=== PATIENT | male | born 1950 | race Caucasian/White ===

== ENCOUNTER 2017-01-31 16:09 | Emergency (ER) | payer MEDICARE, OTHER ==
[2017-01-31 16:14] VITALS: TEMP 98.4; BMI 25.8
--- NOTE | 2017-01-31 17:15 | PDOC ---
History of Present Illness - General History Source: Patient Exam Limitations: No Limitations <Elaine Sutton - Last Filed: 01/31/17 18:43> - General History Source: Patient Exam Limitations: No Limitations - History of Present Illness Initial Comments: 01/31/17 17:51 The patient is a 66 year old male with a significant past medical history of diabetes, hypertension, and hypercholesterolemia, presenting to the Emergency Department with a headache and high blood pressure as of this morning. The patient reports that this morning he had a headache which he believed may be due to his blood pressure. The patient reports taking his blood pressure at noon at home which was measured to be 217/96. He describes the headache as frontal, worse at his left side, radiating around his left eye. He admits to taking one ibuprofen this morning with some relief. He admits that he is compliant with his blood pressure medication. He admits that he saw his PCP last Thursday and his blood pressure was fine. The patient denies blurry vision, or double vision. Patient denies dizziness, or vertigo. Patient denies chest pain, palpitations, and shortness of breath. He denies nausea, vomiting, and diarrhea. Patient denies neck pain, or back pain. Patient denies numbness or tingling to extremities. Patient denies history of smoking. PCP: Dr. Donald Lakhani Past Medical Hx: history of colon cancer <Norma Flannery - Last Filed: 01/31/17 18:54> <Amy Lebron - Last Filed: 02/01/17 22:48> - General Chief Complaint: Headache Stated Complaint: BP PROBLEM Time Seen by Provider: 01/31/17 16:34 Past History - Past Medical History Cancer: Yes (colon) Cardiac Disorders: Yes (H/O COLON CA.) Diabetes: Yes HTN: Yes Hypercholesterolemia: Yes - Psycho/Social/Smoking Cessation Hx Anxiety: No Suicidal Ideation: No Smoking Status: No Smoking History: Never smoked Number of Cigarettes Smoked Daily: 0 Hx Alcohol Use: No Drug/Substance Use Hx: No Substance Use Type: None <Elaine Sutton - Last Filed: 01/31/17 18:43> <Norma Flannery - Last Filed: 01/31/17 18:54> <Amy Lebron - Last Filed: 02/01/17 22:48> - Past Medical History Allergies/Adverse Reactions: Allergies Allergy/AdvReac Type Severity Reaction Status Date / Time No Known Allergies Allergy Verified 01/31/17 16:10 Home Medications: Ambulatory Orders Insulin NPL/Insulin Lispro [Humalog Mix 75-25 Vial] 25 unit SQ BID #7 ml Metoprolol Succinate [Toprol XL -] 50 mg PO DAILY 30 Days 01/13/15 Hydrochlorothiazide [Hctz -] 50 mg PO DAILY #30 tablet 01/31/17 Review of Systems - Review of Systems Able to Perform ROS?: Yes Comments:: 01/31/17 17:51 GENERAL/CONSTITUTIONAL: No: fever, chills, weakness, loss of appetite. Present: + high blood pressure HEAD, EYES, EARS, NOSE AND THROAT: No: change in vision, ear pain, discharge, sore throat, throat swelling. CARDIOVASCULAR: No: chest pain, lightheadedness, palpitations, syncope RESPIRATORY: No: cough, shortness of breath, wheezing, hemoptysis, stridor. GASTROINTESTINAL: No: nausea, vomiting, abdominal cramping, diarrhea, rectal bleeding, constipation. GENITOURINARY: No: dysuria, hematuria, frequency, urgency, flank pain. MUSCULOSKELETAL: No: back pain, neck pain, joint pain, muscle swelling or pain SKIN: No: lesions, pallor, rash or easy bruising. NEUROLOGIC: No: vertigo, paresthesias, weakness Present: + headache worse at left side ENDOCRINE: No: unexplained weight gain or loss HEMATOLOGIC/LYMPHATIC: No: anemia, easy bleeding, swelling nodes <Norma Flannery - Last Filed: 01/31/17 18:54> *Physical Exam - Vital Signs Last Vital Signs Temp Pulse Resp BP Pulse Ox 98.4 F 80 18 161/85 99 01/31/17 16:10 01/31/17 16:10 01/31/17 16:10 01/31/17 16:10 01/31/17 16:10 <Elaine Sutton - Last Filed: 01/31/17 18:43> - Vital Signs Last Vital Signs Temp Pulse Resp BP Pulse Ox 98.4 F 80 18 161/85 99 01/31/17 16:10 01/31/17 16:10 01/31/17 16:10 01/31/17 16:10 01/31/17 16:10 - Physical Exam Comments: 01/31/17 18:42 GENERAL: The patient is in no acute distress. HEAD: Normal with no signs of trauma. EYES: PERRLA, EOMI, sclera anicteric, conjunctiva clear. ENT: Ears normal, nares patent, oropharynx clear without exudates. Moist mucous membranes. NECK: Normal range of motion, supple without lymphadenopathy, JVD, or masses. LUNGS: Breath sounds equal, clear to auscultation bilaterally. No wheezes, and no crackles. HEART:Regular rate and rhythm, normal S1 and S2 without murmur, rub or gallop. ABDOMEN: Soft, nontender, normoactive bowel sounds. No guarding, no rebound. EXTREMITIES: Normal range of motion, no edema. No clubbing or cyanosis. No erythema, or tenderness. NEUROLOGICAL: Cranial nerves II through XII grossly intact. Normal speech. No focal neurological deficits. MUSCULOSKELETAL: Back nontender to palpation, no CVA tenderness SKIN: Warm, Dry, normal turgor, no rashes or lesions noted. <Norma Flannery - Last Filed: 01/31/17 18:54> - Vital Signs Last Vital Signs Temp Pulse Resp BP Pulse Ox 98.4 F 80 18 161/85 99 01/31/17 16:10 01/31/17 16:10 01/31/17 16:10 01/31/17 16:10 01/31/17 16:10 <Amy Lebron - Last Filed: 02/01/17 22:48> Heart Score/ECG Review #1 ECG reviewed & interpreted by me at: 18:22 01/31/17 18:22 Twelve-lead EKG was performed and reviewed by me. There is normal sinus rhythm with a normal rate of 72 bpm. Right axis deviation. The intervals are abnormal - pr:200ms, QRS:166ms, QTc:475ms. There are no ST elevations or depressions similar to prior EKG <Elaine Sutton - Last Filed: 01/31/17 18:43> ED Treatment Course - LABORATORY CBC & Chemistry Diagram: 01/31/17 17:30 01/31/17 17:30 <Elaine Sutton - Last Filed: 01/31/17 18:43> - LABORATORY CBC & Chemistry Diagram: 01/31/17 17:30 01/31/17 17:30 - RADIOLOGY Radiograph Interpretation: 01/31/17 18:[address] to be read by Imaging silk conditioner <Norma Flannery - Last Filed: 01/31/17 18:54> - LABORATORY CBC & Chemistry Diagram: 01/31/17 17:30 01/31/17 17:30 - ADDITIONAL ORDERS Additional order review: Laboratory Results 01/31/17 17:30 Sodium 138 Potassium 4.8 D Chloride 98 Carbon Dioxide 32 Anion Gap 8 BUN 16 D Creatinine 1.3 D Creat Clearance w eGFR 55.40 Random Glucose 295 H D Calcium 8.9 Total Bilirubin 0.3 D AST 18 ALT 26 Alkaline Phosphatase 168 H Creatine Kinase 100 Troponin I < 0.02 Total Protein 7.2 Albumin 3.6 01/31/17 17:30 RBC 5.56 D MCV 85.1 MCHC 32.7 RDW 14.5 D MPV 8.5 Neutrophils % 73.0 Lymphocytes % 19.1 D Monocytes % 6.3 Eosinophils % 1.1 Basophils % 0.5 - Medications Given in the ED: ED Medications Discontinued Medications Generic Name Dose Route Start Last Admin Trade Name Freq PRN Reason Stop Dose Admin Insulin Human Regular 4 units 01/31/17 19:43 01/31/17 19:49 Novolin R Vial *For Ivpush Or Iv Drip Only* SQ 01/31/17 19:44 4 unit ONCE ONE Administration Metoclopramide HCl 10 mg 01/31/17 17:16 01/31/17 17:53 Reglan Injection - IVPB 01/31/17 17:17 10 mg ONCE ONE Administration Valsartan 80 mg 01/31/17 19:35 01/31/17 19:43 Diovan - PO 01/31/17 19:36 80 mg ONCE ONE Administration <Amy Lebron - Last Filed: 02/01/17 22:48> Medical Decision Making - Medical Decision Making 01/31/17 17:14 A portion of this note was documented by scribe services under my direction. I have reviewed the details of the note, within reason, and agree with the documentation with the following case summary and management plan written by me. Nursing documentation reviewed and incorporated into medical decision making This is a 66 yo M h/o DM, HTN, colon cancer in the past Pt presents to the ER with a complaint of headache He states while his head was hurting earlier today, he checked his blood pressure and it was elevated Pt took all of his medications this morning No head trauma Denies dizziness Pt states his headache is frontal, also behind the right eye and on the right side of the face No focal weakness or numbness On examination RRR Lungs clear neurologically nml Will do labs Will do Head CT Will give Reglan Will hold NSAIDS until head CT performed and normal 01/31/17 18:23 Laboratory Tests 01/31/17 17:30 WBC 8.9 Hgb 15.5 D Hct 47.3 D Plt Count 228 Neutrophils % 73.0 Lymphocytes % 19.1 D 01/31/17 18:43 Laboratory Tests 01/31/17 17:30 Sodium 138 Potassium 4.8 D Chloride 98 Carbon Dioxide 32 BUN 16 D Creatinine 1.3 D Random Glucose 295 H D Alkaline Phosphatase 168 H Troponin I < 0.02 <Elaine Sutton - Last Filed: 01/31/17 18:43> - Medical Decision Making 01/31/17 20:26 Patient Name: Nick Leos THIS IS A PRELIMINARY REPORT FROM [facility]. EXAM: HEAD CT WITHOUT CONTRAST DATE OF SERVICE: 2017-01-31 18:14:44.0 IMAGES: 79 INDICATION: Left-sided headache and hypertension. COMPARISON: None FINDINGS: Mild underlying bilateral cerebral hemisphere white matter low- density chronic microvascular ischemic disease. There is no CT evidence of acute cortical territorial infarction, bleed, mass lesion, mass effect, hydrocephalus or abnormal extraaxial collection. No acute sinusitis or mastoiditis is identified. No acute skull fracture or calvarial lesion is noted. THIS DOCUMENT HAS BEEN ELECTRONICALLY SIGNED 02/01/17 22:47 I received patient on signout. He has poorly controlled BP. Head CT normal. He is feeling better. He will go home with meds. I will add on HCTZ to his regimen. Follow with PMD. <Amy Lebron - Last Filed: 02/01/17 22:48> *DC/Admit/Observation/Transfer <Elaine Sutton - Last Filed: 01/31/17 18:43> - Attestations Scribe Attestion: 01/31/17 17:52 Documentation prepared by Norma Flannery, acting as medical health researcher for Elaine Sutton MD/. <Norma Flannery - Last Filed: 01/31/17 18:54> - Discharge Dispostion Admit: No <Amy Lebron - Last Filed: 02/01/17 22:48> Diagnosis at time of Disposition: Hypertension - Discharge Dispostion Disposition: HOME Condition at time of disposition: Stable - Prescriptions Prescriptions: Hydrochlorothiazide [Hctz -] 50 mg PO DAILY #30 tablet - Referrals Referrals: Donald Lakhani MD [Primary Care Provider] - - Patient Instructions Printed Discharge Instructions: DI for High Blood Pressure, How to Monitor Your Blood Pressure at Home
[2017-01-31] MEDS ORDERED: METOCLOPRAMIDE HCL INJECTION 10 MG/2 ML VIAL IVPB ONE (17:16)
[2017-01-31 17:37] LABS: BASOPHIL 0.5 % (0-2.0); EOSINOPHIL 1.1 % (0-4.5); MCH 27.8 pg (25.7-33.7); MCHC 32.7 g/dl (32.0-35.9); MEAN CELL VOLUME 85.1 fl (80-96); MEAN PLT VOLUME 8.5 fl (7.5-11.1); PLATELET COUNT 228 K/MM3 (134-434); RDW 14.5 % (11.9-15.9); WHITE BLOOD COUNT 8.9 K/mm3 (4.0-10.0)
[2017-01-31] MEDS ORDERED: METOCLOPRAMIDE HCL INJECTION 10 MG/2 ML VIAL ONE ×2 (17:40→17:44)
[2017-01-31 18:26] LABS: ALBUMIN 3.6 g/dl (3.4-5.0); ANION GAP 8 (8-16); BILIRUBIN,TOTAL 0.3 mg/dL (0.2-1.0); CALCIUM 8.9 mg/dL (8.5-10.1); CO2 32 mmol/L (21-32); COCKROFT - GAULT 71.23; CREATININE 1.3 mg/dL (0.7-1.3); GLUCOSE,RANDOM 295 mg/dL (74-106); SGPT/ALT 26 U/L (12-78); TOT PROT 7.2 g/dl (6.4-8.2)
[2017-01-31 18:29] LABS: ALK PHOS 168 U/L (45-117); TROPONIN I < 0.02 ng/ml (0.00-0.05)
[2017-01-31 18:41] LABS: SGOT/AST 18 U/L (15-37)
[2017-01-31] MEDS ORDERED: VALSARTAN 80 MG TABLET (UD) PO ONE (19:35)
[2017-01-31] MEDS ORDERED: VALSARTAN 80 MG TABLET (UD) ONE (19:41)
[2017-01-31] MEDS ORDERED: INSULIN REGULAR HUMAN 100 UNITS/ML *VIAL SQ ONE (19:43)
[2017-01-31] MEDS ORDERED: INSULIN REGULAR HUMAN 100 UNITS/ML *VIAL ONE (19:46)
[2017-01-31 20:47] VITALS: BP 140/71; PULSE 77
--- NOTE | 2017-02-02 10:45 | EKG ---
Test Reason : Blood Pressure : / mmHG Vent. Rate : 072 BPM Atrial Rate : 072 BPM P-R Int : 200 ms QRS Dur : 166 ms QT Int : 434 ms P-R-T Axes : 064 242 068 degrees QTc Int : 475 ms NORMAL SINUS RHYTHM POSSIBLE LEFT ATRIAL ENLARGEMENT RIGHT BUNDLE BRANCH BLOCK ABNORMAL ECG WHEN COMPARED WITH ECG OF 28-OCT-2015 22:02, VENT. RATE HAS DECREASED Confirmed by VERONICA RODRÍGUEZ, JOY ([id number]) on 02/02/2017 10:44:29 AM Referred By: Confirmed By:JOY MARTIN MD
== END 2017-01-31 20:50 | disposition home or self-care (01) ==
LOC: SUPCPDRO 16:09 → JER 16:09
PROC: 3E033GC Introduction of Other Therapeutic Substance into Peripheral Vein, Percutaneous Approach (ICD-10-PCS; principal; 2017-01-31)
PROC: 3E013VG Introduction of Insulin into Subcutaneous Tissue, Percutaneous Approach (ICD-10-PCS; 2017-01-31)
DX: I10 Essential (primary) hypertension (principal); E11.9 Type 2 diabetes mellitus without complications; Z79.4 Long term (current) use of insulin; E78.00 Pure hypercholesterolemia, unspecified; Z85.038 Personal history of other malignant neoplasm of large intestine
CPT/HCPCS: 36415; 70450-TC; 80053; 82550; 84484; 85025; 93005; 93010; 96372; 96374; 99282-25

== ENCOUNTER 2017-09-14 13:31 | Emergency (ER) | payer MEDICARE ==
[2017-09-14] MEDS ORDERED: SODIUM CHLORIDE 0.9% 1000 ML INFUS.BAG IV PRN (13:39)
[2017-09-14] MEDS: METOCLOPRAMIDE HCL INJECTION 10 MG/2 ML VIAL IVPUSH ONE ×2 (14:05→14:41)
--- NOTE | 2017-09-14 14:10 | PDOC ---
History of Present Illness - General Stated Complaint: HTN,VOMITING Time Seen by Provider: 09/14/17 13:39 History Source: Patient, EMS, Family Exam Limitations: No Limitations - History of Present Illness Initial Comments: This is a 67 YOM with h/o HTN, IDDM, prior colon cancer s/p resection and chemotherapy 2 years ago, who presents BIBA for headache for the past 3 days, nausea and vomiting this morning, and inability to walk d/t weakness and lightheadedness just [employer]PORATE [employer]OR which prompted the family to call 911. The notes that the patient was attempting to get up from the couch and had to sit down again because he was unable to walk and almost fell. The family states that he has not missed any medications including normal blood pressure medications and diabetes medications. The patient was seen in the ED earlier this year for a similar episode of headache in the setting of missing his blood pressure medications. Past History - Past Medical History Allergies/Adverse Reactions: Allergies Allergy/AdvReac Type Severity Reaction Status Date / Time No Known Allergies Allergy Verified 01/31/17 16:10 Home Medications: Ambulatory Orders Metoprolol Succinate [Toprol XL -] 50 mg PO DAILY 30 Days tab.sr.24h 01/13/15 Insulin Degludec [Tresiba Flextouch U-100] 20 units SQ AM 09/14/17 Insulin Degludec [Tresiba Flextouch U-100] 30 units SQ HS 09/14/17 Metoclopramide HCl [Reglan] 5 mg PO TID PRN #14 tablet 09/14/17 Cancer: Yes (colon) Cardiac Disorders: Yes (H/O COLON CA.) Diabetes: Yes HTN: Yes Hypercholesterolemia: Yes - Suicide/Smoking/Psychosocial Hx Smoking Status: No Smoking History: Never smoked Number of Cigarettes Smoked Daily: 0 Hx Alcohol Use: No Drug/Substance Use Hx: No Substance Use Type: None Review of Systems - Review of Systems Able to Perform ROS?: Yes Constitutional: Yes: Fever (subjective), Weakness. No: Chills, Unexplained wgt Loss HEENTM: No: Nose Congestion, Throat Pain Respiratory: No: Cough, Shortness of Breath Cardiac (ROS): Yes: Lightheadedness. No: Chest Pain, Palpitations, Syncope ABD/GI: Yes: Nausea, Vomiting. No: Constipated, Diarrhea : No: Burning, Dysuria Musculoskeletal: No: Back Pain, Neck Pain Integumentary: No: Bruising, Rash Neurological: Yes: Headache. No: Numbness, Tingling, Weakness, Dizziness Endocrine: No: Unexplained Weight Gain, Unexplained Weight Loss *Physical Exam - Physical Exam General Appearance: Yes: Nourished, Appropriately Dressed, Moderate Distress, Other (actively vomiting food and yellow-green fluid, able to answer questions with one-word answers, Divehi-speaking only) HEENT: positive: EOMI, Normal Voice, Hearing Grossly Normal. negative: Scleral Icterus (R), Scleral Icterus (L), Nasal Congestion Neck: positive: Trachea midline, Supple. negative: Tender, Rigid Respiratory/Chest: positive: Lungs Clear, Normal Breath Sounds. negative: Respiratory Distress, Crackles, Rhonchi, Stridor, Wheezing Cardiovascular: positive: Regular Rhythm, Regular Rate. negative: Murmur Gastrointestinal/Abdominal: positive: Normal Bowel Sounds, Flat, Soft. negative : Tender, Organomegaly, Pulsatile Mass, Guarding Musculoskeletal: positive: Normal Inspection. negative: Decreased Range of Motion, Vertebral Tenderness Extremity: positive: Normal Capillary Refill, Normal Inspection, Normal Range of Motion. negative: Tender, Cyanosis Integumentary: positive: Normal Color, Dry, Warm. negative: Erythema, Rash, Bruising Neurologic: positive: junior qa analyst II-XII NML intact, Fully Oriented, Alert, Normal Mood/ Affect, Normal Response, Motor Strength 5/5. negative: EOM Palsy, Facial Droop , Numbness, Sensory Deficit, Finger to Nose, Confused, Disoriented ED Treatment Course - LABORATORY CBC & Chemistry Diagram: 09/14/17 14:00 09/14/17 14:00 - RADIOLOGY Radiology Studies Ordered: Category Date Time Status ABDOMEN FLAT & UPRIGHT [RAD] Stat Radiology 09/14/17 13:59 Ordered CHEST X-RAY PORTABLE* [RAD] Stat Radiology 09/14/17 13:39 Ordered Medical Decision Making - Medical Decision Making 67M with h/o IDDM and HTN p/w frontal BRONSON x3d now with n/v x3 episodes today, lightheadedness keeping him from walking. On exam he is initially actively vomiting, slightly diaphoretic, but no abdominal ttp and neuro exam wnl, VS wnl. DDX IBNLT migraine, CVA/TIA, influenza, DKA/HHS, pancreatitis, cholecystitis/ choledocholithiasis, etc. Ordered is modified sepsis order set with CBCD, CMP, lipase, cardiac panel, lactate, CXR, abdominal XR. 09/14/17 14:50 Patient's blood pressure is checked manually to be 175/80 on the left and 180/ 78 on the right. WBC results with minimal elevation. 09/14/17 15:58 *DC/Admit/Observation/Transfer Diagnosis at time of Disposition: Headache Qualifiers: Headache type: unspecified Headache chronicity pattern: acute headache Intractability: not intractable Qualified Code(s): R51 - Headache Nausea & vomiting Qualifiers: Vomiting type: unspecified Vomiting Intractability: non-intractable Qualified Code(s): R11.2 - Nausea with vomiting, unspecified - Discharge Dispostion Disposition: HOME Condition at time of disposition: Stable Admit: No - Prescriptions Prescriptions: Metoclopramide HCl [Reglan] 5 mg PO TID PRN #14 tablet PRN Reason: Nausea And/Or Vomiting - Referrals Referrals: Donald Lakhani MD [Primary Care Provider] - - Patient Instructions Printed Discharge Instructions: DI for Viral Syndrome Additional Instructions: You were seen for headache, nausea, and vomiting. We gave you Reglan, Zofran, Tylenol and fluids with improvement in your symptoms. You were able to walk unassisted, eat, and drink. We checked your blood pressure and it was not dangerously elevated as soon as your headache and vomiting had improved. We checked lab work on your blood and urine and there were no concerning abnormalities. Please take Tylenol for headache as directed on the bottle. Please also take Reglan as needed for nausea and headache. We are sending an electronic prescription to your pharmacy for this. Please follow up with your primary doctor in 2 days, or return to the ER for any new or worsening symptoms like headache you cannot control with pain medications, fever, vomiting you cannot control with Reglan, or any neurological symptoms like loss of consciousness, numbness, tingling, weakness, difficulty walking, or other symptoms. Print Language: UKRAINIAN - Post Discharge Activity
[2017-09-14 14:11] LABS: BASO # 0.1 # (0.1-1); BASO % 0.5 % (0-2.0); EOS # 0.1 # (0-4.5); EOS % 0.6 % (0-4.5); LYMPH # 1.8 (8-40); MCH 27.8 pg (25.7-33.7); MCHC 32.7 g/dl (32.0-35.9); MONO # 0.6 # (3.8-10.2); NEUT # 7.7 # (42.8-82.8); NEUT % 74.9 % (42.8-82.8); PLATELET COUNT 181 K/MM3 (134-434); WHITE BLOOD COUNT 10.2 K/mm3 (4.0-10.0)
[2017-09-14 14:12] LABS: URINE APPEARANCE CLEAR; URINE BILIRUBIN NEGATIVE (NEGATIVE); URINE BLOOD NEGATIVE (NEGATIVE); URINE COLOR STRAW; URINE GLUCOSE (UA) 3+ (NEGATIVE); URINE KETONE NEGATIVE (NEGATIVE); URINE LEUK ESTERASE NEGATIVE (NEGATIVE); URINE NITRITE NEGATIVE (NEGATIVE); URINE PROTEIN NEGATIVE (NEGATIVE); URINE UROBILINOGEN NEGATIVE mg/dL (0.2-1.0)
[2017-09-14] MEDS ORDERED: ONDANSETRON 4 MG/2 ML VIAL ONE (14:30)
[2017-09-14 14:31] LABS: ALBUMIN 3.3 g/dl (3.4-5.0); ANION GAP 7 (8-16); BILIRUBIN,TOTAL 0.4 mg/dL (0.2-1.0); CALCIUM 9.2 mg/dL (8.5-10.1); CO2 31 mmol/L (21-32); CREATININE 1.2 mg/dL (0.7-1.3); GLUCOSE,RANDOM 196 mg/dL (74-106); SGOT/AST 18 U/L (15-37); SGPT/ALT 38 U/L (12-78); TOT PROT 6.8 g/dl (6.4-8.2)
[2017-09-14] MEDS ORDERED: ONDANSETRON 4 MG/2 ML VIAL IVPUSH ONE (14:32)
[2017-09-14 14:34] LABS: ALK PHOS 151 U/L (45-117); CPK 66 IU/L (39-308); TROPONIN I < 0.02 ng/ml (0.00-0.05)
[2017-09-14] MEDS ORDERED: METOCLOPRAMIDE HCL INJECTION 10 MG/2 ML VIAL ONE (14:36)
[2017-09-14 14:45] VITALS: BMI 22.4
[2017-09-14] MEDS ORDERED: ACETAMINOPHEN 1000 MG/100 ML VIAL (NON FORMULARY) IVPB ONE (15:54)
[2017-09-14] MEDS ORDERED: ACETAMINOPHEN INJECTION 100 ML IVPB ONE (16:18)
[2017-09-14 18:28] VITALS: BP 160/73; PULSE 71; TEMP 99
[2017-09-14 18:54] LABS: URINE LEUK ESTERASE Negative (NEGATIVE)
--- NOTE | 2017-09-15 13:11 | EKG ---
Test Reason : Blood Pressure : / mmHG Vent. Rate : 074 BPM Atrial Rate : 074 BPM P-R Int : 202 ms QRS Dur : 150 ms QT Int : 426 ms P-R-T Axes : 059 227 052 degrees QTc Int : 472 ms NORMAL SINUS RHYTHM POSSIBLE LEFT ATRIAL ENLARGEMENT RIGHT BUNDLE BRANCH BLOCK SEPTAL INFARCT , AGE UNDETERMINED ABNORMAL ECG WHEN COMPARED WITH ECG OF 31-JAN-2017 17:37, SEPTAL INFARCT IS NOW PRESENT Confirmed by MD Lalo, Juan A ([id number]) on 09/15/2017 1:11:14 PM Referred By: Confirmed By:Juan A May MD
== END 2017-09-14 18:00 | disposition home or self-care (01) ==
LOC: JER 13:31
PROC: 3E033NZ Introduction of Analgesics, Hypnotics, Sedatives into Peripheral Vein, Percutaneous Approach (ICD-10-PCS; principal; 2017-09-14)
PROC: 3E033GC Introduction of Other Therapeutic Substance into Peripheral Vein, Percutaneous Approach (ICD-10-PCS; 2017-09-14)
DX: R51 Headache (principal); R11.2 Nausea with vomiting, unspecified; E11.9 Type 2 diabetes mellitus without complications; I10 Essential (primary) hypertension
CPT/HCPCS: 70450-TC; 71010-TC; 74020-TC; 80053; 81003; 82009; 82550; 83605; 83690; 84484; 85025; 87086; 87804; 93005; 93010; 96374; 96375; 99284-25

== ENCOUNTER 2021-03-26 12:01 | Inpatient (IN) | payer MEDICARE ==
[2021-03-26 12:06] VITALS: BMI 27.6
[2021-03-26 13:31] LABS: BASO % 0.6 % (0-2.0); EOS % 2.1 % (0-4.5); HEMATOCRIT 37.1 % (35.4-49); HEMOGLOBIN 12.1 GM/dL (11.7-16.9); LYMPH % 12.5 % (8-40); MCHC 32.6 g/dl (32.0-35.9); MEAN CELL VOLUME 85.9 fl (80-96); MEAN PLT VOLUME 9.1 fl (7.5-11.1); MONO % 7.8 % (3.8-10.2); PLATELET COUNT 314 10^3/uL (134-434); RBC 4.33 M/mm3 (4.00-5.60); WHITE BLOOD COUNT 9.4 K/mm3 (4.0-10.0)
[2021-03-26 13:50] LABS: CHLORIDE 109 mmol/L (98-107); SODIUM 141 mmol/L (136-145)
[2021-03-26 13:52] LABS: ALBUMIN 2.8 g/dl (3.4-5.0); ANION GAP 5 MMOL/L (8-16); BLOOD UREA NITROGEN 26.6 mg/dL (7-18); CALCIUM 9.1 mg/dL (8.5-10.1); CO2 27 mmol/L (21-32); GLUCOSE,RANDOM 81 mg/dL (74-106)
[2021-03-26 13:56] LABS: SGOT/AST 27 U/L (15-37); SGPT/ALT 19 U/L (13-61)
[2021-03-26 13:57] LABS: BILIRUBIN,TOTAL 0.3 mg/dL (0.2-1)
[2021-03-26 13:58] LABS: ALK PHOS 111 U/L (45-117); TOT PROT 6.6 g/dl (6.4-8.2)
[2021-03-26 14:37] LABS: CREATININE 1.1 mg/dL (0.55-1.3)
[2021-03-26] MEDS ORDERED: ASPIRIN 81 MG CHEWABLE TABLETS PO ONE (15:01)
[2021-03-26] MEDS ORDERED: ASPIRIN 81 MG CHEWABLE TABLETS ONE (15:29)
[2021-03-26] MEDS: INSULIN SLIDING SCALE (NOVOLOG) 1 VIAL SQ SCH (22:13)
[2021-03-27] MEDS: INSULIN SLIDING SCALE (NOVOLOG) 1 VIAL SQ SCH ×4 (06:00→21:49)
[2021-03-27 07:14] LABS: BASO % 0.7 % (0-2.0); EOS % 2.5 % (0-4.5); HEMOGLOBIN 12.1 GM/dL (11.7-16.9); LYMPH % 17.7 % (8-40); MCH 27.9 pg (25.7-33.7); MCHC 32.6 g/dl (32.0-35.9); MEAN CELL VOLUME 85.5 fl (80-96); MEAN PLT VOLUME 8.5 fl (7.5-11.1); MONO % 8.8 % (3.8-10.2); NEUT % 70.3 % (42.8-82.8); PLATELET COUNT 293 10^3/uL (134-434); RBC 4.33 M/mm3 (4.00-5.60); RDW 14.9 % (11.9-15.9); WHITE BLOOD COUNT 8.3 K/mm3 (4.0-10.0)
[2021-03-27 07:34] LABS: CHLORIDE 109 mmol/L (98-107); SODIUM 143 mmol/L (136-145)
[2021-03-27 07:43] LABS: CALCIUM 8.8 mg/dL (8.5-10.1)
[2021-03-27 07:44] LABS: ALBUMIN 2.7 g/dl (3.4-5.0); ANION GAP 6 MMOL/L (8-16); BLOOD UREA NITROGEN 24.4 mg/dL (7-18); CO2 28 mmol/L (21-32)
[2021-03-27 07:47] LABS: CREATININE 1.1 mg/dL (0.55-1.3); SGOT/AST 16 U/L (15-37); SGPT/ALT 16 U/L (13-61)
[2021-03-27 07:48] LABS: BILIRUBIN,TOTAL 0.3 mg/dL (0.2-1)
[2021-03-27 07:49] LABS: TOT PROT 6.3 g/dl (6.4-8.2)
[2021-03-27 07:50] LABS: ALK PHOS 108 U/L (45-117); GLUCOSE,RANDOM 44 mg/dL (74-106)
[2021-03-27] MEDS: FUROSEMIDE 40 MG/4 ML INJECTABLE VIAL IVPUSH SCH (10:07)
[2021-03-27] MEDS: ENOXAPARIN NA (PORCINE) 40 MG/0.4 ML DISP.SYRIN SQ SCH (10:07)
[2021-03-27] MEDS ORDERED: hydrALAZINE HCL 10 MG TABLET PO ONE (17:10)
[2021-03-27] MEDS ORDERED: amLODIPine BESYLATE 2.5 MG TABLET (FP) PO ONE (21:00)
[2021-03-28] MEDS: INSULIN SLIDING SCALE (NOVOLOG) 1 VIAL SQ SCH ×4 (06:26→21:24)
[2021-03-28 07:13] LABS: BASO % 0.7 % (0-2.0); EOS % 2.5 % (0-4.5); HEMATOCRIT 34.1 % (35.4-49); HEMOGLOBIN 11.5 GM/dL (11.7-16.9); LYMPH % 18.3 % (8-40); MCH 28.6 pg (25.7-33.7); MCHC 33.9 g/dl (32.0-35.9); MEAN CELL VOLUME 84.6 fl (80-96); MEAN PLT VOLUME 8.4 fl (7.5-11.1); MONO % 9.2 % (3.8-10.2); NEUT % 69.3 % (42.8-82.8); PLATELET COUNT 285 10^3/uL (134-434); RBC 4.03 M/mm3 (4.00-5.60); RDW 15.3 % (11.9-15.9); WHITE BLOOD COUNT 8.1 K/mm3 (4.0-10.0)
[2021-03-28 07:42] LABS: CALCIUM 8.7 mg/dL (8.5-10.1)
[2021-03-28 07:43] LABS: ALBUMIN 2.6 g/dl (3.4-5.0); BLOOD UREA NITROGEN 26.5 mg/dL (7-18)
[2021-03-28 07:46] LABS: CREATININE 1.2 mg/dL (0.55-1.3)
[2021-03-28 07:47] LABS: BILIRUBIN,TOTAL 0.6 mg/dL (0.2-1); TOT PROT 6.2 g/dl (6.4-8.2)
[2021-03-28] MEDS: ENOXAPARIN NA (PORCINE) 40 MG/0.4 ML DISP.SYRIN SQ SCH (10:02)
[2021-03-28] MEDS: FUROSEMIDE 40 MG/4 ML INJECTABLE VIAL IVPUSH SCH (10:02)
[2021-03-29] MEDS: INSULIN SLIDING SCALE (NOVOLOG) 1 VIAL SQ SCH ×4 (06:37→21:43)
[2021-03-29] MEDS: FUROSEMIDE 40 MG/4 ML INJECTABLE VIAL IVPUSH SCH (09:31)
[2021-03-29] MEDS: ENOXAPARIN NA (PORCINE) 40 MG/0.4 ML DISP.SYRIN SQ SCH (09:31)
[2021-03-29] MEDS ORDERED: amLODIPine BESYLATE 2.5 MG TABLET (FP) PO ONE (14:15)
[2021-03-30] MEDS: INSULIN SLIDING SCALE (NOVOLOG) 1 VIAL SQ SCH ×4 (06:11→21:45)
[2021-03-30 07:39] LABS: BASO % 0.8 % (0-2.0); EOS % 2.2 % (0-4.5); HEMATOCRIT 36.6 % (35.4-49); HEMOGLOBIN 12.2 GM/dL (11.7-16.9); LYMPH % 20.3 % (8-40); MCH 28.2 pg (25.7-33.7); MCHC 33.2 g/dl (32.0-35.9); MEAN CELL VOLUME 84.8 fl (80-96); MEAN PLT VOLUME 8.4 fl (7.5-11.1); MONO % 8.6 % (3.8-10.2); NEUT % 68.1 % (42.8-82.8); PLATELET COUNT 301 10^3/uL (134-434); RBC 4.32 M/mm3 (4.00-5.60); RDW 14.8 % (11.9-15.9); WHITE BLOOD COUNT 8.4 K/mm3 (4.0-10.0)
[2021-03-30 08:01] LABS: BLOOD UREA NITROGEN 24.5 mg/dL (7-18); CALCIUM 8.5 mg/dL (8.5-10.1)
[2021-03-30 08:02] LABS: ALBUMIN 2.7 g/dl (3.4-5.0)
[2021-03-30 08:03] LABS: CREATININE 1.2 mg/dL (0.55-1.3)
[2021-03-30 08:05] LABS: BILIRUBIN,TOTAL 0.4 mg/dL (0.2-1); TOT PROT 6.2 g/dl (6.4-8.2)
[2021-03-30] MEDS: ENOXAPARIN NA (PORCINE) 40 MG/0.4 ML DISP.SYRIN SQ SCH (09:22)
[2021-03-30] MEDS: FUROSEMIDE 40 MG/4 ML INJECTABLE VIAL IVPUSH SCH (09:22)
[2021-03-30] MEDS: amLODIPine BESYLATE 5 MG TABLET (FP) PO SCH (09:22)
[2021-03-30] MEDS: ASPIRIN COATED 81 MG TABLET.EC PO SCH (11:54)
[2021-03-30] MEDS: VALSARTAN 80 MG TABLET PO SCH (11:55)
[2021-03-30] MEDS: ROSUVASTATIN CA 20 MG TABLET (FP) PO SCH (21:45)
[2021-03-31 06:22] LABS: BASO % 0.5 % (0-2.0); EOS % 2.4 % (0-4.5); HEMATOCRIT 38.4 % (35.4-49); HEMOGLOBIN 12.5 GM/dL (11.7-16.9); LYMPH % 18.1 % (8-40); MCH 27.7 pg (25.7-33.7); MCHC 32.5 g/dl (32.0-35.9); MEAN CELL VOLUME 85.2 fl (80-96); MEAN PLT VOLUME 8.8 fl (7.5-11.1); PLATELET COUNT 286 10^3/uL (134-434); RDW 14.7 % (11.9-15.9); WHITE BLOOD COUNT 7.8 K/mm3 (4.0-10.0)
[2021-03-31] MEDS: INSULIN SLIDING SCALE (NOVOLOG) 1 VIAL SQ SCH ×4 (06:33→21:24)
[2021-03-31 06:42] LABS: ALBUMIN 2.6 g/dl (3.4-5.0); CALCIUM 8.1 mg/dL (8.5-10.1)
[2021-03-31 06:43] LABS: BLOOD UREA NITROGEN 25.8 mg/dL (7-18)
[2021-03-31 06:46] LABS: CREATININE 1.2 mg/dL (0.55-1.3)
[2021-03-31 06:47] LABS: BILIRUBIN,TOTAL 0.2 mg/dL (0.2-1)
[2021-03-31] MEDS: ENOXAPARIN NA (PORCINE) 40 MG/0.4 ML DISP.SYRIN SQ SCH (09:43)
[2021-03-31] MEDS: ASPIRIN COATED 81 MG TABLET.EC PO SCH (09:44)
[2021-03-31] MEDS: VALSARTAN 80 MG TABLET PO SCH (09:44)
[2021-03-31] MEDS: FUROSEMIDE 40 MG/4 ML INJECTABLE VIAL IVPUSH SCH (09:44)
[2021-03-31] MEDS: amLODIPine BESYLATE 5 MG TABLET (FP) PO SCH (09:44)
[2021-03-31] MEDS ORDERED: ROSUVASTATIN CA 10 MG TABLET (FP) ONE (21:21)
[2021-03-31] MEDS: ROSUVASTATIN CA 20 MG TABLET (FP) PO SCH (21:24)
[2021-04-01] MEDS: INSULIN SLIDING SCALE (NOVOLOG) 1 VIAL SQ SCH ×2 (06:53→12:05)
[2021-04-01] MEDS: ASPIRIN COATED 81 MG TABLET.EC PO SCH (10:19)
[2021-04-01] MEDS: ENOXAPARIN NA (PORCINE) 40 MG/0.4 ML DISP.SYRIN SQ SCH (10:19)
[2021-04-01] MEDS: VALSARTAN 80 MG TABLET PO SCH (10:19)
[2021-04-01] MEDS: amLODIPine BESYLATE 5 MG TABLET (FP) PO SCH (10:20)
[2021-04-01] MEDS: FUROSEMIDE 40 MG/4 ML INJECTABLE VIAL IVPUSH SCH (10:20)
[2021-04-01 13:23] VITALS: BP 143/65; PULSE 70; TEMP 98.1
== END 2021-04-01 17:43 | disposition home health service (06) | DRG 291 ==
LOC: JER 12:01 → JERBED 12:53 → J4S 16:56
PROVIDERS: ADMIT Internal Medicine; ATTEND Internal Medicine
DX: I13.0 Hypertensive heart and chronic kidney disease with heart failure and stage 1 through stage 4 chronic kidney disease, or unspecified chronic kidney disease (principal); I50.33 Acute on chronic diastolic (congestive) heart failure; N17.9 Acute kidney failure, unspecified; I24.8 Other forms of acute ischemic heart disease; E78.5 Hyperlipidemia, unspecified; E11.9 Type 2 diabetes mellitus without complications; I45.10 Unspecified right bundle-branch block; R77.8 Other specified abnormalities of plasma proteins; E87.5 Hyperkalemia; E11.65 Type 2 diabetes mellitus with hyperglycemia; E11.22 Type 2 diabetes mellitus with diabetic chronic kidney disease; N18.9 Chronic kidney disease, unspecified; Z85.038 Personal history of other malignant neoplasm of large intestine; Z86.73 Personal history of transient ischemic attack (TIA), and cerebral infarction without residual deficits
CPT/HCPCS: 36415; 70450-TC; 71046-TC-FY; 80053; 80061; 82550; 82553; 82962; 83036; 83721; 83880; 84443; 84484; 85025; 93005; 93010; 93306-TC; 93970-TC; 94761; 99285-25; C9803; U0003; U0005

== ENCOUNTER 2022-05-01 12:24 | Emergency (ER) | payer MEDICARE, OTHER ==
[2022-05-01 12:50] VITALS: BP 169/72; PULSE 72; RESP 19; TEMP 98.4; BMI 25.4
[2022-05-01] MEDS ORDERED: CLINDAMYCIN HCL 150 MG CAPSULE (FP) PO ONE (13:54)
[2022-05-01] MEDS ORDERED: CLINDAMYCIN HCL 150 MG CAPSULE (FP) ONE (13:59)
== END 2022-05-01 14:49 | disposition home or self-care (01) ==
LOC: JER 12:24 → JERFT 12:24
DX: S99.922A Unspecified injury of left foot, initial encounter (principal); W01.0XXA Fall on same level from slipping, tripping and stumbling without subsequent striking against object, initial encounter
CPT/HCPCS: 73660-TC-LT-FY; 99283-25

== ENCOUNTER 2022-12-24 10:45 | Inpatient (IN) | payer OTHER ==
[2022-12-24 11:18] VITALS: BMI 27.8
[2022-12-24 12:25] LABS: BASO % 0.4 % (0-2.0); HEMATOCRIT 34.6 % (35.4-49); HEMOGLOBIN 11.6 GM/dL (11.7-16.9); MCH 29.4 pg (25.7-33.7); MCHC 33.4 g/dl (32.0-35.9); MEAN CELL VOLUME 87.8 fl (80-96); MEAN PLT VOLUME 8.9 fl (7.5-11.1); MONO % 10.8 % (3.8-10.2); NEUT % 74.8 % (42.8-82.8); PLATELET COUNT 194 10^3/uL (134-434); RBC 3.94 M/mm3 (4.00-5.60); RDW 14.4 % (11.9-15.9); WHITE BLOOD COUNT 9.3 K/mm3 (4.0-10.0)
[2022-12-24] MEDS ORDERED: FUROSEMIDE 40 MG/4 ML INJECTABLE VIAL IVPUSH ONE (12:33)
[2022-12-24 12:49] LABS: ALBUMIN 2.8 g/dl (3.4-5.0); CALCIUM 8.8 mg/dL (8.5-10.1)
[2022-12-24 12:50] LABS: BLOOD UREA NITROGEN 24.4 mg/dL (7-18)
[2022-12-24 12:52] LABS: CREATININE 1.9 mg/dL (0.55-1.3)
[2022-12-24 12:54] LABS: BILIRUBIN,TOTAL 0.5 mg/dL (0.2-1)
[2022-12-24 12:57] LABS: N-TERMINAL BNP 8119.2 pg/ml (5-125)
[2022-12-24] MEDS ORDERED: HEPARIN NA (PORCINE) 5,000 UNITS/ML 1ML VIAL IVPUSH ONE (13:26)
[2022-12-24] MEDS ORDERED: HEPARIN NA (PORCINE) 5,000 UNITS/ML 1ML VIAL IVPUSH PRN ×2 (13:26)
[2022-12-24] MEDS ORDERED: ASPIRIN 325 MG TABLET PO ONE (13:26)
[2022-12-24] MEDS ORDERED: HEPARIN - 25,000 UNIT in SODIUM CHLORIDE 495 ML IV SCH (13:30)
[2022-12-24] MEDS ORDERED: ASPIRIN 325 MG TABLET ONE (13:47)
[2022-12-24] MEDS ORDERED: HEPARIN NA (PORCINE) 5,000 UNITS/ML 1ML VIAL ONE (13:47)
[2022-12-24] MEDS ORDERED: CLOPIDOGREL BISULFATE 300 MG TABLET PO ONE (13:50)
[2022-12-24] MEDS ORDERED: CLOPIDOGREL BISULFATE 300 MG TABLET ONE (13:55)
[2022-12-24 16:59] VITALS: TEMP 98.6
[2022-12-24] MEDS ORDERED: amLODIPine BESYLATE 5 MG TABLET (FP) PO SCH (18:00)
[2022-12-24 18:28] VITALS: BP 183/88; PULSE 85; RESP 20
[2022-12-24] MEDS ORDERED: INSULIN SLIDING SCALE (NOVOLOG) 1 VIAL SQ SCH (22:00)
[2022-12-24] MEDS ORDERED: ROSUVASTATIN CA 20 MG TABLET PO SCH (22:00)
[2022-12-25] MEDS ORDERED: FUROSEMIDE 40 MG/4 ML INJECTABLE VIAL IVPUSH SCH (10:00)
[2022-12-25] MEDS ORDERED: ASPIRIN COATED 81 MG TABLET.EC PO SCH (10:00)
[2022-12-25] MEDS ORDERED: CLOPIDOGREL BISULFATE 75 MG TABLET (FP) PO SCH (10:00)
== END 2022-12-24 20:38 | disposition short-term general hospital (02) | DRG 280 ==
LOC: JER 10:45 → JERBED 13:50 → J4S 16:30
PROVIDERS: ADMIT Internal Medicine; ATTEND Internal Medicine
DX: I21.4 Non-ST elevation (NSTEMI) myocardial infarction (principal); I50.33 Acute on chronic diastolic (congestive) heart failure; J96.01 Acute respiratory failure with hypoxia; N17.9 Acute kidney failure, unspecified; I13.0 Hypertensive heart and chronic kidney disease with heart failure and stage 1 through stage 4 chronic kidney disease, or unspecified chronic kidney disease; I24.8 Other forms of acute ischemic heart disease; I25.10 Atherosclerotic heart disease of native coronary artery without angina pectoris; E78.5 Hyperlipidemia, unspecified; R77.8 Other specified abnormalities of plasma proteins; E11.22 Type 2 diabetes mellitus with diabetic chronic kidney disease; N18.9 Chronic kidney disease, unspecified; Z85.038 Personal history of other malignant neoplasm of large intestine; Z86.73 Personal history of transient ischemic attack (TIA), and cerebral infarction without residual deficits
CPT/HCPCS: 0241U-QW; 36415; 71046-TC-FY; 80053; 82962; 83880; 84484; 85025; 85379; 93005; 93010; 93306-TC; 93970-TC; 99285-25; J1644

== ENCOUNTER 2023-03-14 13:51 | Inpatient (IN) | payer OTHER ==
[2023-03-14 15:21] LABS: BASO % 0.2 % (0-2.0); EOS % 0.5 % (0-4.5); HEMATOCRIT 36.1 % (35.4-49); HEMOGLOBIN 11.7 GM/dL (11.7-16.9); LYMPH % 6.9 % (8-40); MCH 27.2 pg (25.7-33.7); MCHC 32.3 g/dl (32.0-35.9); MEAN CELL VOLUME 84.3 fl (80-96); MEAN PLT VOLUME 8.4 fl (7.5-11.1); MONO % 6.4 % (3.8-10.2); PLATELET COUNT 261 10^3/uL (134-434); RBC 4.29 M/mm3 (4.00-5.60); RDW 14.2 % (11.9-15.9); WHITE BLOOD COUNT 11.2 K/mm3 (4.0-10.0)
[2023-03-14 15:29] LABS: INR 1.09 (0.83-1.09); PROTHROMBIN TIME (PATIENT) 12.6 SEC (9.7-13.0)
[2023-03-14 15:31] LABS: ACTIVATED PTT 30.1 SECONDS (25.2-36.5)
[2023-03-14 15:39] LABS: POTASSIUM 5.3 mmol/L (3.5-5.1)
[2023-03-14 15:41] LABS: CALCIUM 9.5 mg/dL (8.5-10.1)
[2023-03-14 15:42] LABS: ALBUMIN 3.2 g/dl (3.4-5.0); MAGNESIUM 2.2 mg/dL (1.8-2.4)
[2023-03-14 15:45] LABS: CREATININE 2.4 mg/dL (0.55-1.3)
[2023-03-14 15:46] LABS: BILIRUBIN,TOTAL 0.3 mg/dL (0.2-1); TOT PROT 7.1 g/dl (6.4-8.2)
[2023-03-14] MEDS ORDERED: SODIUM CHLORIDE 0.9% 1000 ML INFUS.BAG IV ONE (15:56)
[2023-03-14 17:21] LABS: POTASSIUM 4.8 mmol/L (3.5-5.1)
[2023-03-14 17:22] LABS: CALCIUM 8.9 mg/dL (8.5-10.1)
[2023-03-14 17:23] LABS: BLOOD UREA NITROGEN 40.4 mg/dL (7-18)
[2023-03-14 17:26] LABS: CREATININE 2.2 mg/dL (0.55-1.3)
[2023-03-14 18:41] LABS: EPI CELLS >36 /uL (0-25.1); HYALINE CASTS 1 /uL (0-3.1); PH,URINE >= 9.0 (5.0-8.0); URINE APPEARANCE CLOUDY; URINE BACTERIA 5304 /uL (0-1359); URINE BILIRUBIN NEGATIVE (NEGATIVE); URINE COLOR DK YELLOW; URINE GLUCOSE (UA) NEGATIVE (NEGATIVE); URINE KETONE NEGATIVE (NEGATIVE); URINE LEUK ESTERASE 3+ (NEGATIVE); URINE NITRITE NEGATIVE (NEGATIVE); URINE PROTEIN 4+ (NEGATIVE); URINE RBC 6 /uL (0-23.9); URINE UROBILINOGEN 0.2 mg/dL (0.2-1.0); URINE WBC 29 /uL (0-25.8)
[2023-03-14] MEDS ORDERED: CEFTRIAXONE 1,000 MG in DEXTROSE 5%-WATER - 50 ML IVPB ONE (20:22)
[2023-03-14] MEDS ORDERED: CEFTRIAXONE 1 GM/50 ML BAG ONE (20:24)
[2023-03-15] MEDS: SODIUM CHLORIDE 0.45% 1,000 ML IV SCH ×2 (04:30→19:19)
[2023-03-15] MEDS: INSULIN SLIDING SCALE (NOVOLOG) 1 VIAL SQ SCH ×4 (06:59→21:39)
[2023-03-15 07:16] LABS: POTASSIUM 4.1 mmol/L (3.5-5.1)
[2023-03-15 07:21] LABS: CALCIUM 8.8 mg/dL (8.5-10.1)
[2023-03-15 07:22] LABS: BLOOD UREA NITROGEN 41.6 mg/dL (7-18)
[2023-03-15 07:23] LABS: BILIRUBIN,TOTAL 0.3 mg/dL (0.2-1)
[2023-03-15 07:25] LABS: BASO % 0.3 % (0-2.0); CREATININE 2.1 mg/dL (0.55-1.3); EOS % 2.7 % (0-4.5); HEMATOCRIT 32.7 % (35.4-49); HEMOGLOBIN 10.7 GM/dL (11.7-16.9); MCH 27.6 pg (25.7-33.7); MCHC 32.8 g/dl (32.0-35.9); MEAN CELL VOLUME 84.1 fl (80-96); MEAN PLT VOLUME 8.8 fl (7.5-11.1); MONO % 10.1 % (3.8-10.2); NEUT % 73.9 % (42.8-82.8); PLATELET COUNT 246 10^3/uL (134-434); RBC 3.89 M/mm3 (4.00-5.60); RDW 13.8 % (11.9-15.9); WHITE BLOOD COUNT 9.3 K/mm3 (4.0-10.0)
[2023-03-15 07:26] LABS: TOT PROT 6.3 g/dl (6.4-8.2)
[2023-03-15] MEDS: VALSARTAN 80 MG TABLET PO SCH (10:41)
[2023-03-15] MEDS: ENOXAPARIN NA (PORCINE) 40 MG/0.4 ML DISP.SYRIN SQ SCH (10:41)
[2023-03-15] MEDS: CEFTRIAXONE 1 GM in DEXTROSE 5%-WATER - 50 ML IVPB SCH (10:41)
[2023-03-15] MEDS: amLODIPine BESYLATE 5 MG TABLET (FP) PO SCH (10:41)
[2023-03-15] MEDS: ASPIRIN COATED 81 MG TABLET.EC PO SCH (10:41)
[2023-03-15] MEDS: ROSUVASTATIN CA 20 MG TABLET PO SCH (21:39)
[2023-03-16] MEDS: SODIUM CHLORIDE 0.45% 1,000 ML IV SCH ×2 (01:23→15:01)
[2023-03-16] MEDS: INSULIN SLIDING SCALE (NOVOLOG) 1 VIAL SQ SCH ×4 (06:27→22:06)
[2023-03-16 07:55] LABS: POTASSIUM 4.4 mmol/L (3.5-5.1)
[2023-03-16 07:59] LABS: ALBUMIN 2.8 g/dl (3.4-5.0); BLOOD UREA NITROGEN 31.9 mg/dL (7-18); CALCIUM 8.9 mg/dL (8.5-10.1)
[2023-03-16 08:02] LABS: CREATININE 1.9 mg/dL (0.55-1.3)
[2023-03-16 08:04] LABS: BILIRUBIN,TOTAL 0.3 mg/dL (0.2-1); TOT PROT 6.1 g/dl (6.4-8.2)
[2023-03-16] MEDS: CEFTRIAXONE 1 GM in DEXTROSE 5%-WATER - 50 ML IVPB SCH (10:43)
[2023-03-16] MEDS: VALSARTAN 80 MG TABLET PO SCH (10:43)
[2023-03-16] MEDS: ASPIRIN COATED 81 MG TABLET.EC PO SCH (10:43)
[2023-03-16] MEDS: amLODIPine BESYLATE 5 MG TABLET (FP) PO SCH (10:43)
[2023-03-16] MEDS: ENOXAPARIN NA (PORCINE) 40 MG/0.4 ML DISP.SYRIN SQ SCH (10:43)
[2023-03-16] MEDS ORDERED: INSULIN (NOVOLOG) ASPART 100 UNITS/ML 10ML VIAL ONE (12:51)
[2023-03-16 16:00] VITALS: BMI 22.1
[2023-03-16] MEDS ORDERED: amLODIPine BESYLATE 5 MG TABLET (FP) PO ONE (21:30)
[2023-03-16] MEDS: ROSUVASTATIN CA 20 MG TABLET PO SCH (22:06)
[2023-03-17] MEDS: INSULIN SLIDING SCALE (NOVOLOG) 1 VIAL SQ SCH ×4 (06:16→21:31)
[2023-03-17] MEDS: ASPIRIN COATED 81 MG TABLET.EC PO SCH (10:02)
[2023-03-17] MEDS: ENOXAPARIN NA (PORCINE) 40 MG/0.4 ML DISP.SYRIN SQ SCH (10:02)
[2023-03-17] MEDS: CEFTRIAXONE 1 GM in DEXTROSE 5%-WATER - 50 ML IVPB SCH (10:02)
[2023-03-17] MEDS: amLODIPine BESYLATE 10 MG TABLET (FP) PO SCH (10:02)
[2023-03-17] MEDS: VALSARTAN 80 MG TABLET PO SCH (10:02)
[2023-03-17] MEDS ORDERED: INSULIN (NOVOLOG) ASPART 100 UNITS/ML 10ML VIAL ONE ×2 (11:58→17:31)
[2023-03-17] MEDS: SPIRONOLACTONE 25 MG TABLET PO SCH (14:53)
[2023-03-17] MEDS: ROSUVASTATIN CA 20 MG TABLET PO SCH (21:31)
[2023-03-18] MEDS: INSULIN SLIDING SCALE (NOVOLOG) 1 VIAL SQ SCH ×4 (06:02→21:40)
[2023-03-18 08:08] LABS: ALBUMIN 2.8 g/dl (3.4-5.0); BLOOD UREA NITROGEN 30.6 mg/dL (7-18)
[2023-03-18 08:12] LABS: CREATININE 1.5 mg/dL (0.55-1.3)
[2023-03-18 08:14] LABS: BILIRUBIN,TOTAL 0.4 mg/dL (0.2-1)
[2023-03-18] MEDS: ASPIRIN COATED 81 MG TABLET.EC PO SCH (09:38)
[2023-03-18] MEDS: VALSARTAN 80 MG TABLET PO SCH (09:38)
[2023-03-18] MEDS: SPIRONOLACTONE 25 MG TABLET PO SCH (09:38)
[2023-03-18] MEDS: amLODIPine BESYLATE 10 MG TABLET (FP) PO SCH (09:39)
[2023-03-18] MEDS: ENOXAPARIN NA (PORCINE) 40 MG/0.4 ML DISP.SYRIN SQ SCH (09:39)
[2023-03-18] MEDS: CEFTRIAXONE 1 GM in DEXTROSE 5%-WATER - 50 ML IVPB SCH (09:39)
[2023-03-18 13:07] LABS: EPI CELLS 12 /uL (0-25.1); HYALINE CASTS 1 /uL (0-3.1); PH,URINE 5.5 (5.0-8.0); URINE APPEARANCE CLOUDY; URINE BACTERIA 44 /uL (0-1359); URINE BILIRUBIN NEGATIVE (NEGATIVE); URINE COLOR YELLOW; URINE GLUCOSE (UA) TRACE (NEGATIVE); URINE KETONE NEGATIVE (NEGATIVE); URINE LEUK ESTERASE NEGATIVE (NEGATIVE); URINE NITRITE NEGATIVE (NEGATIVE); URINE PROTEIN 3+ (NEGATIVE); URINE RBC 18 /uL (0-23.9); URINE UROBILINOGEN 0.2 mg/dL (0.2-1.0); URINE WBC 13 /uL (0-25.8)
[2023-03-18] MEDS ORDERED: INSULIN (NOVOLOG) ASPART 100 UNITS/ML 10ML VIAL ONE (17:04)
[2023-03-18] MEDS ORDERED: ROSUVASTATIN CA 20 MG TABLET PO SCH (22:00)
[2023-03-19] MEDS: INSULIN SLIDING SCALE (NOVOLOG) 1 VIAL SQ SCH ×4 (06:06→22:19)
[2023-03-19] MEDS ORDERED: ASPIRIN COATED 81 MG TABLET.EC PO SCH (10:00)
[2023-03-19] MEDS: VALSARTAN 80 MG TABLET PO SCH (11:08)
[2023-03-19] MEDS: SPIRONOLACTONE 25 MG TABLET PO SCH (11:08)
[2023-03-19] MEDS: amLODIPine BESYLATE 10 MG TABLET (FP) PO SCH (11:08)
[2023-03-19] MEDS: ENOXAPARIN NA (PORCINE) 40 MG/0.4 ML DISP.SYRIN SQ SCH (11:09)
[2023-03-19] MEDS: CEFTRIAXONE 1 GM in DEXTROSE 5%-WATER - 50 ML IVPB SCH (11:39)
[2023-03-19] MEDS ORDERED: INSULIN (NOVOLOG) ASPART 100 UNITS/ML 10ML VIAL ONE ×4 (12:11→22:18)
[2023-03-19] MEDS ORDERED: ROSUVASTATIN CA 20 MG TABLET PO SCH (13:56)
[2023-03-20] MEDS: INSULIN SLIDING SCALE (NOVOLOG) 1 VIAL SQ SCH ×2 (06:56→11:56)
[2023-03-20] MEDS: SPIRONOLACTONE 25 MG TABLET PO SCH (09:10)
[2023-03-20] MEDS: amLODIPine BESYLATE 10 MG TABLET (FP) PO SCH (09:10)
[2023-03-20] MEDS: ENOXAPARIN NA (PORCINE) 40 MG/0.4 ML DISP.SYRIN SQ SCH (09:11)
[2023-03-20] MEDS: CEFTRIAXONE 1 GM in DEXTROSE 5%-WATER - 50 ML IVPB SCH (09:11)
[2023-03-20] MEDS: VALSARTAN 80 MG TABLET PO SCH (09:19)
[2023-03-20 09:27] LABS: POTASSIUM 4.2 mmol/L (3.5-5.1)
[2023-03-20 09:28] LABS: CALCIUM 9.2 mg/dL (8.5-10.1)
[2023-03-20 09:29] LABS: BLOOD UREA NITROGEN 39.4 mg/dL (7-18)
[2023-03-20 09:30] LABS: ALBUMIN 2.7 g/dl (3.4-5.0)
[2023-03-20 09:32] LABS: CREATININE 1.8 mg/dL (0.55-1.3)
[2023-03-20 09:34] LABS: BILIRUBIN,TOTAL 0.3 mg/dL (0.2-1)
[2023-03-20] MEDS ORDERED: ASPIRIN 81 MG CHEWABLE TABLETS PO SCH (10:00)
[2023-03-20 15:06] VITALS: BP 151/55; PULSE 70; RESP 16; TEMP 97.5
== END 2023-03-20 15:05 | disposition home health service (06) | DRG 689 ==
LOC: JER 13:51 → OBSVTOIN 14:56 → JERBED 14:56 → J2W 20:37 → J8W 03-18 17:28
PROVIDERS: ADMIT Internal Medicine; ATTEND Internal Medicine
DX: N39.0 Urinary tract infection, site not specified (principal); I63.9 Cerebral infarction, unspecified; I13.0 Hypertensive heart and chronic kidney disease with heart failure and stage 1 through stage 4 chronic kidney disease, or unspecified chronic kidney disease; N17.9 Acute kidney failure, unspecified; R55 Syncope and collapse; E78.5 Hyperlipidemia, unspecified; Z85.038 Personal history of other malignant neoplasm of large intestine; G20 Parkinson's disease; S91.319A Laceration without foreign body, unspecified foot, initial encounter; W19.XXXA Unspecified fall, initial encounter; Y93.9 Activity, unspecified; Y92.89 Other specified places as the place of occurrence of the external cause; Y99.9 Unspecified external cause status; I50.9 Heart failure, unspecified; N40.0 Benign prostatic hyperplasia without lower urinary tract symptoms; I25.10 Atherosclerotic heart disease of native coronary artery without angina pectoris; E11.22 Type 2 diabetes mellitus with diabetic chronic kidney disease; G62.9 Polyneuropathy, unspecified
CPT/HCPCS: 36415; 70450-TC; 70551-TC; 71045-TC-FY; 72125-TC; 72170-TC-FY; 73502-TC-LT-FY; 73630-TC-LT; 74176-TC; 76775-TC; 80048; 80053; 80061; 81003; 82570; 82607; 82962; 83036; 83735; 84156; 84443; 84484; 85025; 85610; 85730; 86780; 86850; 86900; 86901; 87086; 87186; 93005; 93010; 93880-TC; 97116-GP; 97162-GP; 99285-25

== ENCOUNTER 2023-03-29 17:44 | Observation (INO) | payer OTHER ==
[2023-03-29] MEDS ORDERED: FAMOTIDINE 20 MG/50 ML IVPB 20 MG/50 ML MG IVPB ONE ×2 (18:41→18:51)
[2023-03-29] MEDS ORDERED: MAG HYDROX/AL HYDROX/SIMETH 30 ML UNIT-DOSE CUP PO ONE (18:41)
[2023-03-29] MEDS ORDERED: ONDANSETRON 4 MG/2 ML VIAL IVPUSH ONE (18:41)
[2023-03-29] MEDS ORDERED: MAG HYDROX/AL HYDROX/SIMETH 30 ML UNIT-DOSE CUP ONE (18:51)
[2023-03-29] MEDS ORDERED: ONDANSETRON 4 MG/2 ML VIAL ONE (18:51)
[2023-03-29 19:01] LABS: BASO % 0.4 % (0-2.0); EOS % 1.4 % (0-4.5); HEMATOCRIT 34.9 % (35.4-49); HEMOGLOBIN 11.7 GM/dL (11.7-16.9); LYMPH % 11.3 % (8-40); MCH 28.3 pg (25.7-33.7); MCHC 33.5 g/dl (32.0-35.9); MEAN CELL VOLUME 84.4 fl (80-96); MEAN PLT VOLUME 8.8 fl (7.5-11.1); MONO % 6.8 % (3.8-10.2); NEUT % 80.1 % (42.8-82.8); PLATELET COUNT 267 10^3/uL (134-434); RBC 4.14 M/mm3 (4.00-5.60); RDW 14.6 % (11.9-15.9); WHITE BLOOD COUNT 8.9 K/mm3 (4.0-10.0)
[2023-03-29 19:08] LABS: INR 1.03 (0.83-1.09)
[2023-03-29 19:10] LABS: ACTIVATED PTT 28.5 SECONDS (25.2-36.5)
[2023-03-29 19:45] LABS: POTASSIUM 5.6 mmol/L (3.5-5.1)
[2023-03-29 19:48] LABS: BLOOD UREA NITROGEN 44.9 mg/dL (7-18); CALCIUM 9.5 mg/dL (8.5-10.1); MAGNESIUM 2.6 mg/dL (1.8-2.4)
[2023-03-29 19:51] LABS: CREATININE 2.9 mg/dL (0.55-1.3)
[2023-03-29 19:53] LABS: BILIRUBIN,TOTAL 0.3 mg/dL (0.2-1); TOT PROT 6.9 g/dl (6.4-8.2)
[2023-03-29 19:57] LABS: ALBUMIN 3.3 g/dl (3.4-5.0)
[2023-03-29 19:57] LABS: EPI CELLS 5 /uL (0-25.1); HYALINE CASTS 1 /uL (0-3.1); PH,URINE 5.5 (5.0-8.0); URINE APPEARANCE CLEAR; URINE BACTERIA 11 /uL (0-1359); URINE BILIRUBIN NEGATIVE (NEGATIVE); URINE COLOR YELLOW; URINE GLUCOSE (UA) NEGATIVE (NEGATIVE); URINE KETONE NEGATIVE (NEGATIVE); URINE LEUK ESTERASE NEGATIVE (NEGATIVE); URINE NITRITE NEGATIVE (NEGATIVE); URINE PROTEIN 3+ (NEGATIVE); URINE RBC 17 /uL (0-23.9); URINE UROBILINOGEN 0.2 mg/dL (0.2-1.0); URINE WBC 6 /uL (0-25.8)
[2023-03-30] MEDS ORDERED: ONDANSETRON 4 MG/2 ML VIAL IVPUSH PRN (01:34)
[2023-03-30] MEDS: DEXTROSE 5%-0.45% SALINE 1,000 ML IV SCH ×2 (02:33→05:53)
[2023-03-30] MEDS: INSULIN SLIDING SCALE (NOVOLOG) 1 VIAL SQ SCH ×4 (06:00→21:13)
[2023-03-30 09:30] LABS: BASO % 0.6 % (0-2.0); EOS % 1.9 % (0-4.5); HEMATOCRIT 33.8 % (35.4-49); HEMOGLOBIN 11.1 GM/dL (11.7-16.9); LYMPH % 12.6 % (8-40); MCH 28.1 pg (25.7-33.7); MCHC 32.8 g/dl (32.0-35.9); MEAN CELL VOLUME 85.6 fl (80-96); MEAN PLT VOLUME 9.1 fl (7.5-11.1); MONO % 7.8 % (3.8-10.2); NEUT % 77.1 % (42.8-82.8); PLATELET COUNT 275 10^3/uL (134-434); RBC 3.95 M/mm3 (4.00-5.60); RDW 14.1 % (11.9-15.9)
[2023-03-30 09:47] LABS: POTASSIUM 4.9 mmol/L (3.5-5.1)
[2023-03-30] MEDS: HEPARIN NA (PORCINE) 5,000 UNITS/ML 1ML VIAL SQ SCH ×2 (09:54→21:13)
[2023-03-30] MEDS: VALSARTAN 80 MG TABLET PO SCH (09:54)
[2023-03-30] MEDS: PANTOPRAZOLE 40 MG TABLET PO SCH (09:54)
[2023-03-30] MEDS: ASPIRIN 81 MG CHEWABLE TABLETS PO SCH (09:54)
[2023-03-30] MEDS: amLODIPine BESYLATE 5 MG TABLET (FP) PO SCH (09:54)
[2023-03-30 09:57] LABS: CALCIUM 9.3 mg/dL (8.5-10.1)
[2023-03-30 09:58] LABS: ALBUMIN 3.1 g/dl (3.4-5.0); BLOOD UREA NITROGEN 32.5 mg/dL (7-18)
[2023-03-30] MEDS ORDERED: ASPIRIN COATED 81 MG TABLET.EC PO SCH (10:00)
[2023-03-30 10:01] LABS: CREATININE 2.3 mg/dL (0.55-1.3)
[2023-03-30 10:02] LABS: TOT PROT 6.4 g/dl (6.4-8.2)
[2023-03-30 10:03] LABS: BILIRUBIN,TOTAL 0.3 mg/dL (0.2-1)
[2023-03-30] MEDS ORDERED: INSULIN (NOVOLOG) ASPART 100 UNITS/ML 10ML VIAL ONE ×3 (11:29→17:36)
[2023-03-30 16:14] VITALS: RESP 18
[2023-03-30] MEDS: ROSUVASTATIN CA 20 MG TABLET PO SCH (21:51)
[2023-03-30] MEDS ORDERED: ROSUVASTATIN CA 20 MG TABLET PO SCH (22:00)
[2023-03-31] MEDS: DEXTROSE 5%-0.45% SALINE 1,000 ML IV SCH ×2 (06:26→17:41)
[2023-03-31] MEDS: INSULIN SLIDING SCALE (NOVOLOG) 1 VIAL SQ SCH ×4 (06:26→21:39)
[2023-03-31] MEDS: VALSARTAN 80 MG TABLET PO SCH (09:27)
[2023-03-31] MEDS: amLODIPine BESYLATE 5 MG TABLET (FP) PO SCH (09:27)
[2023-03-31] MEDS: ASPIRIN 81 MG CHEWABLE TABLETS PO SCH (09:27)
[2023-03-31] MEDS: PANTOPRAZOLE 40 MG TABLET PO SCH (09:27)
[2023-03-31] MEDS: HEPARIN NA (PORCINE) 5,000 UNITS/ML 1ML VIAL SQ SCH ×2 (09:27→21:39)
[2023-03-31 14:43] VITALS: BMI 23.7
[2023-03-31] MEDS ORDERED: INSULIN (NOVOLOG) ASPART 100 UNITS/ML 10ML VIAL ONE (17:39)
[2023-03-31] MEDS: ROSUVASTATIN CA 20 MG TABLET PO SCH (21:34)
[2023-04-01] MEDS: INSULIN SLIDING SCALE (NOVOLOG) 1 VIAL SQ SCH ×3 (06:30→17:22)
[2023-04-01] MEDS: DEXTROSE 5%-0.45% SALINE 1,000 ML IV SCH (09:27)
[2023-04-01] MEDS: HEPARIN NA (PORCINE) 5,000 UNITS/ML 1ML VIAL SQ SCH (09:28)
[2023-04-01] MEDS: amLODIPine BESYLATE 5 MG TABLET (FP) PO SCH (09:29)
[2023-04-01] MEDS: ASPIRIN 81 MG CHEWABLE TABLETS PO SCH (09:29)
[2023-04-01] MEDS: VALSARTAN 80 MG TABLET PO SCH (09:29)
[2023-04-01] MEDS: PANTOPRAZOLE 40 MG TABLET PO SCH (09:29)
[2023-04-01 10:39] LABS: ALBUMIN 2.8 g/dl (3.4-5.0)
[2023-04-01 10:40] LABS: CALCIUM 8.8 mg/dL (8.5-10.1)
[2023-04-01 10:41] LABS: BLOOD UREA NITROGEN 25.7 mg/dL (7-18); CREATININE 2.1 mg/dL (0.55-1.3)
[2023-04-01 10:43] LABS: BILIRUBIN,TOTAL 0.2 mg/dL (0.2-1); TOT PROT 5.8 g/dl (6.4-8.2)
[2023-04-01] MEDS ORDERED: INSULIN (NOVOLOG) ASPART 100 UNITS/ML 10ML VIAL ONE ×2 (12:05→17:20)
[2023-04-01 14:25] VITALS: BP 145/67; PULSE 68; TEMP 98.4
== END 2023-04-01 18:53 | disposition home health service (06) ==
LOC: JER 17:44 → JERBED 22:55 → INTOOBSV 22:55 → OBSVTOIN 22:55 → UNDOADMOB 22:55 → JERBED 03-30 03:49 → J6S 03-30 03:49 → JERBED 03-30 15:23 → J6S 03-30 15:23
PROVIDERS: ADMIT Internal Medicine; ATTEND Internal Medicine
PROC: 3E033GC Introduction of Other Therapeutic Substance into Peripheral Vein, Percutaneous Approach (ICD-10-PCS; principal; 2023-03-30)
PROC: 3E023GC Introduction of Other Therapeutic Substance into Muscle, Percutaneous Approach (ICD-10-PCS; 2023-03-30)
PROC: 3E013VG Introduction of Insulin into Subcutaneous Tissue, Percutaneous Approach (ICD-10-PCS; 2023-03-30)
DX: N17.9 Acute kidney failure, unspecified (principal); E11.22 Type 2 diabetes mellitus with diabetic chronic kidney disease; I13.10 Hypertensive heart and chronic kidney disease without heart failure, with stage 1 through stage 4 chronic kidney disease, or unspecified chronic kidney disease; N18.9 Chronic kidney disease, unspecified; D64.9 Anemia, unspecified; G20 Parkinson's disease; R77.9 Abnormality of plasma protein, unspecified
CPT/HCPCS: 36415; 70450-TC; 72125-TC; 74176-TC; 76700-TC; 80053; 81003; 82607; 82746; 82962; 82977; 83036; 83540; 83550; 83690; 83735; 84484; 85025; 85610; 85730; 87086; 87186; 93005; 93010; 96365; 96367; 96372; 96375; 97116-GP; 97162-GP; 99285-25; G0378; J1644

== ENCOUNTER 2023-04-12 19:19 | Observation (INO) | payer OTHER ==
[2023-04-12 19:47] VITALS: BMI 23.7
[2023-04-12 20:56] LABS: BASO % 0.6 % (0-2.0); EOS % 0.6 % (0-4.5); HEMATOCRIT 40.3 % (35.4-49); HEMOGLOBIN 13.1 GM/dL (11.7-16.9); LYMPH % 13.8 % (8-40); MCH 27.9 pg (25.7-33.7); MCHC 32.6 g/dl (32.0-35.9); MEAN CELL VOLUME 85.6 fl (80-96); MEAN PLT VOLUME 9.3 fl (7.5-11.1); MONO % 5.5 % (3.8-10.2); NEUT % 79.5 % (42.8-82.8); PLATELET COUNT 245 10^3/uL (134-434); RBC 4.71 M/mm3 (4.00-5.60); RDW 14.7 % (11.9-15.9); WHITE BLOOD COUNT 8.1 K/mm3 (4.0-10.0)
[2023-04-12 21:00] LABS: VENOUS BASE EXCESS 0.9 mmol/L (-2-2); VENOUS O2 SATURATION 20.7 % (70-80); VENOUS PCO2 58.5 mmHg (38-52); VENOUS PH 7.305 (7.310-7.410)
[2023-04-12 21:04] LABS: INR 1.04 (0.83-1.09); PROTHROMBIN TIME (PATIENT) 12.1 SEC (9.7-13.0)
[2023-04-12 21:07] LABS: ACTIVATED PTT 30.4 SECONDS (25.2-36.5)
[2023-04-12 21:17] LABS: CALCIUM 9.9 mg/dL (8.5-10.1)
[2023-04-12 21:18] LABS: BLOOD UREA NITROGEN 33.9 mg/dL (7-18)
[2023-04-12 21:21] LABS: CREATININE 2.1 mg/dL (0.55-1.3)
[2023-04-12 21:23] LABS: BILIRUBIN,TOTAL 0.3 mg/dL (0.2-1); TOT PROT 7.7 g/dl (6.4-8.2)
[2023-04-12] MEDS ORDERED: CALCIUM GLUCONATE 10% - 1,000 MG/10 ML VIAL IVPB ONE (21:27)
[2023-04-12] MEDS ORDERED: DEXTROSE 50%-WATER - 25 GM/50 ML VIAL IVPUSH ONE (21:28)
[2023-04-12] MEDS ORDERED: INSULIN REGULAR HUMAN 100 UNITS/ML *VIAL IV STA (21:29)
[2023-04-12] MEDS ORDERED: DEXTROSE 50%-WATER 25 GM/50 ML DISP.SYRIN ONE (21:31)
[2023-04-12] MEDS ORDERED: CALCIUM GLUC IN NACL, ISO-OSM 1 GM/50 ML BAG IVPB ONE (21:31)
[2023-04-12 21:36] LABS: ALBUMIN 3.7 g/dl (3.4-5.0)
[2023-04-13] MEDS ORDERED: ONDANSETRON 4 MG/2 ML VIAL IVPUSH PRN (01:03)
[2023-04-13] MEDS ORDERED: ACETAMINOPHEN 1000 MG/100 ML BAG IVPB PRN (01:04)
[2023-04-13] MEDS ORDERED: CARBIDOPA/LEVODOPA 25/100 TABLET (FP) PO SCH (06:00)
[2023-04-13] MEDS: INSULIN SLIDING SCALE (NOVOLOG) 1 VIAL SQ SCH ×4 (07:15→22:01)
[2023-04-13] MEDS: ASPIRIN 81 MG CHEWABLE TABLETS PO SCH (09:31)
[2023-04-13] MEDS: amLODIPine BESYLATE 5 MG TABLET (FP) PO SCH (09:31)
[2023-04-13] MEDS: CLOPIDOGREL BISULFATE 75 MG TABLET (FP) PO SCH (09:31)
[2023-04-13] MEDS: TAMSULOSIN HCL 0.4 MG CAP PO SCH (09:31)
[2023-04-13] MEDS: SODIUM CHLORIDE 0.45% 1,000 ML IV SCH ×3 (09:31→14:00)
[2023-04-13] MEDS: metoPROLOL SUCCINATE 25 MG TAB.SR.24H (FP) PO SCH (09:31)
[2023-04-13] MEDS: FAMOTIDINE 20 MG TABLET PO SCH ×2 (09:31→21:54)
[2023-04-13] MEDS ORDERED: PANTOPRAZOLE 40 MG TABLET PO SCH (10:00)
[2023-04-13] MEDS ORDERED: VALSARTAN 80 MG TABLET PO SCH (10:00)
[2023-04-13 10:34] LABS: BASO % 0.5 % (0-2.0); EOS % 1.3 % (0-4.5); HEMATOCRIT 35.1 % (35.4-49); HEMOGLOBIN 11.5 GM/dL (11.7-16.9); LYMPH % 14.6 % (8-40); MCH 27.8 pg (25.7-33.7); MCHC 32.8 g/dl (32.0-35.9); MEAN CELL VOLUME 84.6 fl (80-96); MEAN PLT VOLUME 9.1 fl (7.5-11.1); MONO % 6.8 % (3.8-10.2); NEUT % 76.8 % (42.8-82.8); PLATELET COUNT 218 10^3/uL (134-434); RBC 4.15 M/mm3 (4.00-5.60); RDW 14.8 % (11.9-15.9); WHITE BLOOD COUNT 7.6 K/mm3 (4.0-10.0)
[2023-04-13 10:47] LABS: POTASSIUM 5.8 mmol/L (3.5-5.1)
[2023-04-13 10:54] LABS: CALCIUM 9.3 mg/dL (8.5-10.1)
[2023-04-13 10:55] LABS: BLOOD UREA NITROGEN 28.2 mg/dL (7-18)
[2023-04-13 10:56] LABS: CREATININE 1.9 mg/dL (0.55-1.3)
[2023-04-13 10:58] LABS: BILIRUBIN,TOTAL 0.3 mg/dL (0.2-1); TOT PROT 6.2 g/dl (6.4-8.2)
[2023-04-13] MEDS: SODIUM ZIRCONIUM CYCLOSILICATE (LOKELMA) 5 GM PACKET PO SCH ×2 (13:58→21:54)
[2023-04-13] MEDS: ROSUVASTATIN CA 20 MG TABLET PO SCH (21:53)
[2023-04-14] MEDS: SODIUM CHLORIDE 0.45% 1,000 ML IV SCH ×3 (00:21→15:10)
[2023-04-14] MEDS: INSULIN SLIDING SCALE (NOVOLOG) 1 VIAL SQ SCH ×4 (06:05→21:06)
[2023-04-14] MEDS: TAMSULOSIN HCL 0.4 MG CAP PO SCH (10:09)
[2023-04-14 10:30] LABS: BASO % 0.7 % (0-2.0); EOS % 2.3 % (0-4.5); HEMATOCRIT 34.3 % (35.4-49); HEMOGLOBIN 11.3 GM/dL (11.7-16.9); LYMPH % 17.9 % (8-40); MCH 28.4 pg (25.7-33.7); MEAN PLT VOLUME 9.1 fl (7.5-11.1); MONO % 6.9 % (3.8-10.2); NEUT % 72.2 % (42.8-82.8); PLATELET COUNT 199 10^3/uL (134-434); RBC 3.99 M/mm3 (4.00-5.60); RDW 14.9 % (11.9-15.9); WHITE BLOOD COUNT 6.4 K/mm3 (4.0-10.0)
[2023-04-14 10:41] LABS: POTASSIUM 5.5 mmol/L (3.5-5.1)
[2023-04-14] MEDS: FAMOTIDINE 20 MG TABLET PO SCH ×2 (10:41→21:06)
[2023-04-14] MEDS: CLOPIDOGREL BISULFATE 75 MG TABLET (FP) PO SCH (10:42)
[2023-04-14] MEDS: ASPIRIN 81 MG CHEWABLE TABLETS PO SCH (10:42)
[2023-04-14 10:44] LABS: ALBUMIN 2.8 g/dl (3.4-5.0)
[2023-04-14 10:45] LABS: CALCIUM 9.2 mg/dL (8.5-10.1)
[2023-04-14 10:46] LABS: CREATININE 1.8 mg/dL (0.55-1.3)
[2023-04-14 10:48] LABS: BILIRUBIN,TOTAL 0.4 mg/dL (0.2-1)
[2023-04-14] MEDS: metoPROLOL SUCCINATE 25 MG TAB.SR.24H (FP) PO SCH (10:59)
[2023-04-14] MEDS: amLODIPine BESYLATE 5 MG TABLET (FP) PO SCH (11:00)
[2023-04-14] MEDS: SODIUM ZIRCONIUM CYCLOSILICATE (LOKELMA) 5 GM PACKET PO SCH (16:23)
[2023-04-14] MEDS ORDERED: ONDANSETRON 4 MG/2 ML VIAL IVPUSH PRN (17:07)
[2023-04-14] MEDS ORDERED: INSULIN SLIDING SCALE (NOVOLOG) 1 VIAL SQ ONE (19:12)
[2023-04-14] MEDS: ROSUVASTATIN CA 20 MG TABLET PO SCH (21:06)
[2023-04-15] MEDS: HEPARIN NA (PORCINE) 5,000 UNITS/ML 1ML VIAL SQ SCH ×3 (04:00→21:23)
[2023-04-15] MEDS: SODIUM CHLORIDE 0.45% 1,000 ML IV SCH ×2 (04:37→17:05)
[2023-04-15] MEDS: INSULIN SLIDING SCALE (NOVOLOG) 1 VIAL SQ SCH ×4 (06:05→21:34)
[2023-04-15] MEDS: SODIUM ZIRCONIUM CYCLOSILICATE (LOKELMA) 5 GM PACKET PO SCH (09:45)
[2023-04-15] MEDS: amLODIPine BESYLATE 5 MG TABLET (FP) PO SCH (09:45)
[2023-04-15] MEDS: metoPROLOL SUCCINATE 25 MG TAB.SR.24H (FP) PO SCH (09:45)
[2023-04-15] MEDS: PANTOPRAZOLE 40 MG TABLET PO SCH (09:46)
[2023-04-15] MEDS: FAMOTIDINE 20 MG TABLET PO SCH ×2 (09:46→21:23)
[2023-04-15] MEDS: ASPIRIN 81 MG CHEWABLE TABLETS PO SCH (09:46)
[2023-04-15] MEDS: CLOPIDOGREL BISULFATE 75 MG TABLET (FP) PO SCH (09:46)
[2023-04-15] MEDS: TAMSULOSIN HCL 0.4 MG CAP PO SCH (09:46)
[2023-04-15 10:49] LABS: CALCIUM 8.5 mg/dL (8.5-10.1)
[2023-04-15 10:50] LABS: ALBUMIN 2.8 g/dl (3.4-5.0); BLOOD UREA NITROGEN 19.7 mg/dL (7-18)
[2023-04-15 10:53] LABS: CREATININE 1.5 mg/dL (0.55-1.3)
[2023-04-15 10:55] LABS: BILIRUBIN,TOTAL 0.3 mg/dL (0.2-1); TOT PROT 5.9 g/dl (6.4-8.2)
[2023-04-15 10:56] LABS: BASO % 0.6 % (0-2.0); EOS % 2.3 % (0-4.5); HEMATOCRIT 35.5 % (35.4-49); HEMOGLOBIN 11.5 GM/dL (11.7-16.9); LYMPH % 17.4 % (8-40); MCH 27.5 pg (25.7-33.7); MCHC 32.4 g/dl (32.0-35.9); MEAN CELL VOLUME 84.9 fl (80-96); MEAN PLT VOLUME 9.4 fl (7.5-11.1); MONO % 7.7 % (3.8-10.2); PLATELET COUNT 196 10^3/uL (134-434); RBC 4.18 M/mm3 (4.00-5.60); RDW 14.4 % (11.9-15.9); WHITE BLOOD COUNT 6.3 K/mm3 (4.0-10.0)
[2023-04-15] MEDS: ROSUVASTATIN CA 20 MG TABLET PO SCH (21:23)
[2023-04-15] MEDS ORDERED: INSULIN (LEVEMIR) 100 UNITS/ML UNITS SQ ONE (21:53)
[2023-04-15] MEDS ORDERED: INSULIN (LEVEMIR) 100 UNITS/ML UNITS SQ SCH (22:00)
[2023-04-16] MEDS: INSULIN SLIDING SCALE (NOVOLOG) 1 VIAL SQ SCH ×2 (06:16→12:57)
[2023-04-16 07:19] VITALS: RESP 18
[2023-04-16] MEDS: HEPARIN NA (PORCINE) 5,000 UNITS/ML 1ML VIAL SQ SCH (10:09)
[2023-04-16] MEDS: CLOPIDOGREL BISULFATE 75 MG TABLET (FP) PO SCH (10:09)
[2023-04-16] MEDS: amLODIPine BESYLATE 5 MG TABLET (FP) PO SCH (10:09)
[2023-04-16] MEDS: ASPIRIN 81 MG CHEWABLE TABLETS PO SCH (10:09)
[2023-04-16] MEDS: PANTOPRAZOLE 40 MG TABLET PO SCH (10:09)
[2023-04-16] MEDS: FAMOTIDINE 20 MG TABLET PO SCH (10:09)
[2023-04-16] MEDS: metoPROLOL SUCCINATE 25 MG TAB.SR.24H (FP) PO SCH (10:09)
[2023-04-16] MEDS: TAMSULOSIN HCL 0.4 MG CAP PO SCH (10:10)
[2023-04-16 13:20] VITALS: BP 156/60; PULSE 72; TEMP 98.2
== END 2023-04-16 16:24 | disposition home health service (06) ==
LOC: JER 19:19 → UNDOADMOB 23:28 → JERBED 23:28 → INTOOBSV 23:28 → JERBED 04-13 02:48 → J5S 04-13 02:48 → JERBED 04-13 09:36
PROVIDERS: ADMIT Internal Medicine; ATTEND Internal Medicine
PROC: 3E033GC Introduction of Other Therapeutic Substance into Peripheral Vein, Percutaneous Approach (ICD-10-PCS; principal; 2023-04-13)
PROC: 3E0337Z Introduction of Electrolytic and Water Balance Substance into Peripheral Vein, Percutaneous Approach (ICD-10-PCS; 2023-04-13)
PROC: 3E023GC Introduction of Other Therapeutic Substance into Muscle, Percutaneous Approach (ICD-10-PCS; 2023-04-13)
PROC: 3E013VG Introduction of Insulin into Subcutaneous Tissue, Percutaneous Approach (ICD-10-PCS; 2023-04-13)
DX: I12.9 Hypertensive chronic kidney disease with stage 1 through stage 4 chronic kidney disease, or unspecified chronic kidney disease (principal); E11.22 Type 2 diabetes mellitus with diabetic chronic kidney disease; I25.10 Atherosclerotic heart disease of native coronary artery without angina pectoris; I67.4 Hypertensive encephalopathy; E11.65 Type 2 diabetes mellitus with hyperglycemia; N18.9 Chronic kidney disease, unspecified; N40.0 Benign prostatic hyperplasia without lower urinary tract symptoms; N17.9 Acute kidney failure, unspecified; R10.9 Unspecified abdominal pain; R41.0 Disorientation, unspecified; C78.7 Secondary malignant neoplasm of liver and intrahepatic bile duct; Z85.038 Personal history of other malignant neoplasm of large intestine; R26.81 Unsteadiness on feet
CPT/HCPCS: 36415; 70450-TC; 80053; 82607; 82803; 82962; 83036; 83605; 83690; 84132; 84443; 84484; 85025; 85610; 85730; 93005; 93010; 96361; 96372; 96374; 96375; 97116-GP; 97162-GP; 99285-25; G0378; J1644

== ENCOUNTER 2024-06-19 17:58 | Emergency (ER) | payer OTHER ==
[2024-06-19] MEDS ORDERED: ACETAMINOPHEN 325 MG TABLET (FP) ONE (18:42)
[2024-06-19] MEDS: ACETAMINOPHEN 325 MG TABLET (FP) PO ONE (18:47)
[2024-06-19 18:49] VITALS: BP 147/82; PULSE 89; RESP 20; TEMP 98.5; BMI 20.2
[2024-06-19 20:57] LABS: EPI CELLS 7 /uL (0-25.1); HYALINE CASTS 0 /uL (0-3.1); URINE APPEARANCE CLOUDY; URINE BACTERIA 27 /uL (0-1359); URINE BILIRUBIN NEGATIVE (NEGATIVE); URINE COLOR YELLOW; URINE GLUCOSE (UA) 3+ (NEGATIVE); URINE KETONE NEGATIVE (NEGATIVE); URINE LEUK ESTERASE NEGATIVE (NEGATIVE); URINE NITRITE NEGATIVE (NEGATIVE); URINE PROTEIN 3+ (NEGATIVE); URINE RBC 29 /uL (0-23.9); URINE UROBILINOGEN 0.2 mg/dL (0.2-1.0); URINE WBC 12 /uL (0-25.8)
== END 2024-06-20 00:16 | disposition home or self-care (01) ==
LOC: JER 17:58
DX: R30.0 Dysuria (principal); N39.0 Urinary tract infection, site not specified; R35.0 Frequency of micturition
CPT/HCPCS: 81003; 87086; 99283-25